=== PATIENT | female | born 1985 | race Caucasian/White ===

== ENCOUNTER 2021-05-13 15:51 | Emergency (ER) | payer MEDICAID ==
[~2021-05-13] VITALS: Ht 167.6 cm; Wt 86.4 kg
[~2021-05-13 15:51] MED LIST: BUPR100T7 PO; FER325T PO; NO HOME MEDS; PNV1CAPS50 PO; TRAZ-251 PO
[2021-05-13 16:37] LABS: BASOPHILS # (AUTO) 0.1 X10'3 (0-0.2); WHITE BLOOD COUNT 10.9 X10'3 (4.5-11.0)
[2021-05-13 16:38] LABS: BASOPHILS % (AUTO) 0.7 % (0-1); EOSINOPHILS # (AUTO) 0.1 X10'3 (0-0.9); EOSINOPHILS % (AUTO) 0.9 % (0-6); HEMATOCRIT 34.9 % (35.0-45.0); HEMOGLOBIN 12.5 g/dl (12.0-16.0); LYMPHOCYTES # (AUTO) 3.1 X10'3 (1.1-4.8); LYMPHOCYTES % (AUTO) 28.3 % (21-51); MEAN CORPUSCULAR HEMOGLOBIN 33.6 PG (27.0-31.0); MEAN CORPUSCULAR HGB CONC 35.7 g/dL (33.0-36.5); MONOCYTES # (AUTO) 0.8 X10'3 (0-0.9); MONOCYTES % (AUTO) 7.3 % (2-12); NEUTROPHILS # (AUTO) 6.8 X10'3 (1.8-7.7); NEUTROPHILS % (AUTO) 62.8 % (42-75); PLATELET COUNT 314 X10'3 (140-440); RED BLOOD COUNT 3.72 X10'6 (4.20-5.60); RED CELL DISTRIBUTION WIDTH 12.1 % (11.5-14.5)
[2021-05-13 16:49] LABS: ALANINE AMINOTRANSFERASE 85 U/L (12-78); ALBUMIN 2.7 G/DL (3.4-5.0); ALBUMIN/GLOBULIN RATIO 0.6 (1.1-1.5); ALKALINE PHOSPHATASE 104 IU/L (46-116); ANION GAP 10 (8-16); ASPARTATE AMINO TRANSFERASE 49 U/L (10-37); BILIRUBIN,TOTAL 0.3 MG/DL (0.1-1.0); BLOOD UREA NITROGEN 8 MG/DL (7-18); BUN/CREATININE RATIO 15.1 (6.6-38.0); CALCIUM 8.7 MG/DL (8.5-10.1); CHLORIDE 104 MMOL/L (99-107); CREATININE 0.53 MG/DL (0.40-0.90); GLUCOSE 86 MG/DL (70-104); POTASSIUM 3.7 MMOL/L (3.5-5.1); SODIUM 138 MMOL/L (135-145); TOTAL CARBON DIOXIDE 24.3 MMOL/L (24-32); TOTAL PROTEIN 7.6 G/DL (6.4-8.2); eGFR > 90 ML/MIN
[2021-05-13] MEDS ORDERED: OLANZapine 2.5MG tablet PO ONE (16:50)
[2021-05-13] MEDS ORDERED: OLANZAPINE 5 MG TABLET PO ONE (16:56)
[2021-05-13 16:57] LABS: ETHANOL < 0.010 GM/DL (0.0-0.010)
--- NOTE | 2021-05-13 17:01 | NUR ---
PT MOVED FROM H19 TO H13, [employer] OFFICER RELEASED PT FOR CARE.
[2021-05-13 17:53] LABS: HCG SERUM QL POSITIVE
--- NOTE | 2021-05-13 18:35 | NUR ---
ultrasound paged at [phone]
[2021-05-13] MEDS: multivitamins, therapeutics tablet PO SCH (19:23)
[2021-05-13 20:08] LABS: CLARITY,URINE SLIGHTLY CLOUDY (Clear); COLOR,URINE YELLOW (Yellow); UA COLLECTION TYPE CLN CATCH MIDSTREAM
[2021-05-13 20:09] LABS: GLUCOSE, URINE NEGATIVE (Neg); KETONES,URINE NEGATIVE (Neg); LEUKOCYTE ESTERASE ,URINE NEGATIVE (Neg); NITRITES, URINE NEGATIVE (Neg); OCCULT BLOOD,URINE NEGATIVE (Neg); PROTEIN,URINE NEGATIVE (Neg); UROBILINOGEN,URINE 0.2 E.U/dL (0.2-1.0)
[2021-05-13 20:15] LABS: URINE AMPHETAMINE SCREEN POSITIVE (Neg); URINE BARBITUATE SCREEN NEGATIVE (Neg); URINE BENZODIAZEPINES SCREEN NEGATIVE (Neg); URINE CANNABINOID SCREEN POSITIVE (Neg); URINE COCAINE SCREEN NEGATIVE (Neg); URINE METHADONE SCREEN NEGATIVE (Neg); URINE OPIATE SCREEN NEGATIVE (Neg); URINE PHENCYCLIDINE SCREEN NEGATIVE (Neg)
[2021-05-13 20:20] LABS: MUCUS STRANDS MODERATE /LPF (Neg); SQUAMOUS EPITHELIAL CELL,UR MANY /LPF (FEW)
[2021-05-13 20:21] LABS: BACTERIA,URINE 1+ /HPF (Neg); RBC,URINE 0-2 /HPF (0-2); TRANSITIONAL EPI CELLS,URINE FEW /HPF
[2021-05-13 20:25] LABS: HIV ANTIBODY 1&2 RAPID NON-REACTIVE (Neg)
--- NOTE | 2021-05-13 22:00 | NUR ---
Packet sent to [facility]
--- NOTE | 2021-05-13 23:54 | NUR ---
The patient appears to be sleeping
--- NOTE | 2021-05-14 01:45 | NUR ---
The patient appears to be sleeping
--- NOTE | 2021-05-14 04:17 | NUR ---
The patient appears to be sleeping
--- NOTE | 2021-05-14 06:30 | NUR ---
Pt. appears to be sleeping.
--- NOTE | 2021-05-14 08:00 | NUR ---
Pt. got up to use the bathroom, when asked if her name was Nereida Coburn, pt. states, "I left that fat bitch in there" and points to the bathroom. Pt. ate breakfast and went back to sleep.
[2021-05-14] MEDS: multivitamins, therapeutics tablet PO SCH (08:52)
--- NOTE | 2021-05-14 09:24 | NUR ---
FAXED PACKET TO [facility].
--- NOTE | 2021-05-14 10:00 | NUR ---
Pt. responds to the name Nereida, but then denies she goes by the name. 1:1 done at bedside, pt. is disorganized and is only alert and oriented x1. Pt. Denies SI/HI, A/V hallucinations. Pt. gives minimal information to this RN and states she needs her armband removed because Nereida is not her name. Pt. then went back to sleep.
--- NOTE | 2021-05-14 12:00 | NUR ---
Pt. appears to be sleeping.
[2021-05-14] MEDS ORDERED: OLANZapine 2.5MG tablet PO ONE (14:30)
--- NOTE | 2021-05-14 14:41 | NUR ---
Pt. experiencing visual and auditory hallucinations, screaming and point in her room, "You better get the out of my room!" Pt. then ran across the room and started yelling at the wall. RN received order for now dose of Zyprexa 10mg po once and 10mg BID.
--- NOTE | 2021-05-14 15:30 | NUR ---
Pt. asleep in bed.
--- NOTE | 2021-05-14 19:14 | NUR ---
One to one with the patient who presented as very drowsy and did not open her eyes during the evening assessment. Her replies were minimal. When asked if she knew where she was at she stated that [facility] a [facility] and she was informed that she was in the ER. When asked what the month was she stated, October. She was unable to state what season it was or why she was here. She denied hearing voices.
[2021-05-14] MEDS: olanzapine 10mg tablet PO SCH (19:44)
--- NOTE | 2021-05-14 20:21 | NUR ---
The patient appears to be sleeping. Took HS zyprexa.
--- NOTE | 2021-05-14 21:41 | NUR ---
The patient appears to be sleeping
--- NOTE | 2021-05-14 23:01 | NUR ---
The patient appears to be sleeping
--- NOTE | 2021-05-15 00:12 | NUR ---
The patient appears to be sleeping
--- NOTE | 2021-05-15 02:15 | NUR ---
The patient appears to be sleeping
--- NOTE | 2021-05-15 04:57 | NUR ---
The patient appears to be sleeping
--- NOTE | 2021-05-15 06:30 | NUR ---
Pt. asleep in bed in supine position.
--- NOTE | 2021-05-15 08:30 | NUR ---
Pt. awake and eating breakfast at bedside.
[2021-05-15] MEDS: olanzapine 10mg tablet PO SCH ×2 (08:35→19:42)
[2021-05-15] MEDS: multivitamins, therapeutics tablet PO SCH (08:35)
--- NOTE | 2021-05-15 10:30 | NUR ---
Pt. asleep in bed in supine position.
--- NOTE | 2021-05-15 12:30 | NUR ---
Pt. asleep in bed, lying down on right side.
[2021-05-15 14:17] LABS: ALANINE AMINOTRANSFERASE 73 U/L (12-78); ALBUMIN 2.3 G/DL (3.4-5.0); ALBUMIN/GLOBULIN RATIO 0.5 (1.1-1.5); ALKALINE PHOSPHATASE 101 IU/L (46-116); ASPARTATE AMINO TRANSFERASE 45 U/L (10-37); BILIRUBIN,DIRECT 0.1 MG/DL (0-0.3); BILIRUBIN,TOTAL 0.4 MG/DL (0.1-1.0); TOTAL PROTEIN 6.8 G/DL (6.4-8.2)
--- NOTE | 2021-05-15 14:30 | NUR ---
Pt. asleep in bed in supine position.
--- NOTE | 2021-05-15 16:34 | NUR ---
Pt. c/o of chest pain rated 6/10. EKG obtained which read NSR. Shortly afterward pt. fell asleep in supine position in her bed.
--- NOTE | 2021-05-15 17:45 | NUR ---
Pt. awoke and talking on phone with myra. Pt. in no apparent distress.
--- NOTE | 2021-05-15 18:36 | NUR ---
The patient presents as very tired and had to be repeatedly wakened to eat her dinner. She is disoriented and stated the month was July. She denies that she is having any auditory or visual hallucinations. She denies being suicidal. Her replies were very minimal. She stated that if she were to be discharged she has an apartment on [address] here in [place]. She is disheveled. She denies any pain. She denies any complications. She denies vaginal bleeding. She has no plan for care.
--- NOTE | 2021-05-15 20:32 | NUR ---
The patient appears to be sleeping
--- NOTE | 2021-05-16 01:23 | NUR ---
The patient appears to be sleeping
--- NOTE | 2021-05-16 02:25 | NUR ---
The patient appears to be sleeping
--- NOTE | 2021-05-16 03:51 | NUR ---
The patient appears to be sleeping
--- NOTE | 2021-05-16 04:35 | NUR ---
The patient appears to be sleeping
--- NOTE | 2021-05-16 07:00 | NUR ---
Pt up to the bathroom and returned to bed. Pt given cup of coffee which she accepted and is sipping on.
--- NOTE | 2021-05-16 07:34 | NUR ---
Per [facility] patient was evalusted 05/14/21 New 5150 for GD written
[2021-05-16] MEDS: olanzapine 10mg tablet PO SCH ×2 (08:08→20:09)
[2021-05-16] MEDS: multivitamins, therapeutics tablet PO SCH (08:08)
--- NOTE | 2021-05-16 09:00 | NUR ---
Pt laying in bed. Received phone call from her fiance and she remains pleasant and met with registration and was cooperative.
--- NOTE | 2021-05-16 10:59 | NUR ---
Pt visiting with the baby's father who seemed to be honestly interested in the wellbeing of the patient and the baby.
--- NOTE | 2021-05-16 11:01 | NUR ---
Donta Driver: baby's father - He states that he has been taking her to visits with a doctor in [place].
--- NOTE | 2021-05-16 13:01 | NUR ---
Pt lying in bed asleep without signs of distress.
--- NOTE | 2021-05-16 15:00 | NUR ---
Pt remains sleeping in bed without distress.
--- NOTE | 2021-05-16 17:05 | NUR ---
Pt continues to be lying in bed with her eyes closed and appears to be sleeping peacefully.
--- NOTE | 2021-05-16 19:00 | NUR ---
patient on her side with eyes closed, asked if she was doing okay she said yes. Patient trying to rest comfortably.
--- NOTE | 2021-05-17 00:41 | NUR ---
patient awake, speaking loudly that she is annoyed that the there is a patient pacing around. I offered to draw curtain and she refused. Refilled her water jug per her request, she thanked me and encouraged her to get more rest, she rolled over in bed and closed her eyes.
--- NOTE | 2021-05-17 01:40 | NUR ---
patient was restless and stood up from bed, asked for juice, juice provided and patient laid back down to rest.
[2021-05-17] MEDS: olanzapine 10mg tablet PO SCH ×2 (08:16→19:19)
[2021-05-17] MEDS: multivitamins, therapeutics tablet PO SCH (08:17)
--- NOTE | 2021-05-17 08:29 | NUR ---
Pt eating breakfast, took am meds and then up to bathroom, steady gait
--- NOTE | 2021-05-17 10:17 | NUR ---
Pt [facility] called, pt sleeping, will call back later.
--- NOTE | 2021-05-17 12:55 | NUR ---
Lunch at bedside, pt eating.
--- NOTE | 2021-05-17 13:30 | NUR ---
[facility] at bedside to talk w pt.
--- NOTE | 2021-05-17 15:06 | NUR ---
Pt [facility] called, pt talked to him noble on phone.
--- NOTE | 2021-05-17 18:30 | NUR ---
The patient has been accepted at [facility] by Dr. Seymour at 1755 today per the [facility] office.
--- NOTE | 2021-05-17 18:51 | NUR ---
The patient was resting on her bed after eating her dinner. She quickly became agitated with evening assessment questions. "I want to be left alone" She then stood up and began using her hands to make a pushing movement as if she was responding to internal stimuli. She denies A/V hallcinations.
--- NOTE | 2021-05-17 20:01 | NUR ---
The patient is resting on her bed.
--- NOTE | 2021-05-17 22:05 | NUR ---
The patient suddenly up and walking by the nursing station and explained, "I have to walk I feel like I'm being choked" She then immediately went back to lay on her bed.
--- NOTE | 2021-05-18 00:07 | NUR ---
The patient appears to be sleeping
--- NOTE | 2021-05-18 01:52 | NUR ---
The patient appears to be sleeping
--- NOTE | 2021-05-18 03:57 | NUR ---
The patient appears to be sleeping
--- NOTE | 2021-05-18 04:16 | NUR ---
THe patient up to use the bathroom and appeared disorganized and was in and out of the bathroom. She then approached staff and stated her fingers were missing and asked for help. She appeared to be responding to internal stimuli.
--- NOTE | 2021-05-18 05:01 | NUR ---
The patient is awake and is gesturing in the air. She is responding to internal stimuli
--- NOTE | 2021-05-18 06:22 | NUR ---
The patient is awake and appears distressed. Got up and sat on the floor briefly before going back.
[2021-05-18] MEDS: olanzapine 10mg tablet PO SCH (07:16)
--- NOTE | 2021-05-18 07:50 | NUR ---
THe patient given hygiene supplies and clean clothes.
[2021-05-18 08:10] VITALS: BP 106/67
== END 2021-05-18 08:15 ==
LOC: ER 15:51 → EDBD 15:51 → ER 05-18 08:15
DX: O26.92 Pregnancy related conditions, unspecified, second trimester (principal); Z20.822 Contact with and (suspected) exposure to COVID-19; F29 Unspecified psychosis not due to a substance or known physiological condition; F15.10 Other stimulant abuse, uncomplicated; Z3A.24 24 weeks gestation of pregnancy; Z88.8 Allergy status to other drugs, medicaments and biological substances; Z79.899 Other long term (current) drug therapy
CPT/HCPCS: 36415; 76805; 80053; 80076; 80305; 80320; 81001; 84443; 84702; 84703; 85025; 86592; 86703; 86885; 86900; 86901; 87635; 99291; C9803; 76815

== ENCOUNTER 2024-11-07 09:40 | Outpatient (CLI) | payer MEDICAID ==
[~2024-11-07 09:40] MED LIST changes: +BUPR100T15 PO; -BUPR100T7 PO
--- NOTE | 2024-11-07 12:21 | RADIOLOGY REPORT ---
LIMITED OB ULTRASOUND > 14 WKS: HISTORY: SUPERVISION OF HIGH RISK , UNSP, UNSP TRIMESTER TECHNIQUE: Multiple real-time grayscale images of the gravid uterus with duplex Doppler color flow an d M-mode spectral analysis. TRANSDUCER: Transabdominal FINDINGS: IUP single live fetus at 15 weeks 5 days based on composite averages of the [employer]PD, head circumference, abdominal circumference and femur length Estimated weight 129 grams heart rate 142 beats per minute Cervix measures 3.4 cm. Cephalic Presentation Posterior Placenta without previa or abruption. IMPRESSION: IUP single live fetus at 15 weeks 5 days AUA corresponding to an ADAN of 04/26/2025
== END 2024-11-07 23:59 | disposition home or self-care (01) ==
LOC: RAD 09:40
PROVIDERS: ATTEND Family Medicine
DX: O09.91 Supervision of high risk pregnancy, unspecified, first trimester (principal); Z3A.15 15 weeks gestation of pregnancy
CPT/HCPCS: 76815